=== PATIENT | male | born 1940 | race Caucasian/White ===

== ENCOUNTER 2025-03-12 06:07 | Inpatient (IN) ==
--- NOTE | 2025-03-01 13:34 | PAT Medication Instructions ---
Medication Instructions Date of Service March 01, 2025 Home Medications Medication Instructions Recorded lidocaine 5 % topical ointment 1 applic topical QID PRN pain #50 02/16/25 grams gabapentin 300 mg capsule 300 mg PO TID #90 caps 02/23/25 cholecalciferol (vitamin D3) 25 mcg (1,000 unit) capsule (Vitamin D3) 25 mcg PO QAM dutasteride 0.5 mg capsule (Avodart) 0.5 mg PO QAM esomeprazole magnesium 40 mg capsule,delayed release (Nexium) 40 mg PO QAM metformin 500 mg tablet 500 mg PO BID metoprolol succinate 25 mg tablet,extended release 24 hr 12.5 mg PO QAM mirabegron 50 mg tablet,extended release 24 hr (Myrbetriq) 50 mg PO QAM vvmocpes-cx-zbolz 300 mcg-K 60 mcg-lycop 600 mcg-lutein 300 mcg tablet (Centrum Silver Men) 1 tab PO QAM rosuvastatin 20 mg tablet 20 mg PO QAM tamsulosin 0.4 mg capsule 0.4 mg PO QAM aspirin 81 mg capsule 81 mg PO QAM acetaminophen 650 mg tablet,extended release (Tylenol 8 Hour) 650 mg PO BID PRN cetirizine 10 mg tablet 10 mg PO QAM vit C 250 mg-vit E 90 mg-zinc 40 mg-copper 1 of-vrmjst-bwflqf capsule ( PreserVision AREDS-2) 1 tab PO BID celecoxib 200 mg capsule 200 mg PO BID empagliflozin 25 mg tablet (Jardiance) 25 mg PO QAM lidocaine 5 % topical ointment 1 applic topical QID PRN gabapentin 300 mg capsule 300 mg PO TID STOP 3 days before surgery empagliflozin 25 mg tablet (Jardiance) 25 mg PO QAM ASK your surgeon for instructions celecoxib 200 mg capsule 200 mg PO BID ASK your prescriber and surgeon aspirin 81 mg capsule 81 mg PO QAM STOP taking 2 weeks before surgery (or as soon as possible if surgery is within 2 weeks) vit C 250 mg-vit E 90 mg-zinc 40 mg-copper 1 tp-padmgm-vxzcdi capsule (PreserVis ion AREDS-2) 1 tab PO BID STOP taking 24 hours before surgery lidocaine 5 % topical ointment 1 applic topical QID PRN DO NOT take the morning of surgery cholecalciferol (vitamin D3) 25 mcg (1,000 unit) capsule (Vitamin D3) 25 mcg PO QAM metformin 500 mg tablet 500 mg PO BID mirabegron 50 mg tablet,extended release 24 hr (Myrbetriq) 50 mg PO QAM ibqvnizw-dx-bigfl 300 mcg-K 60 mcg-lycop 600 mcg-lutein 300 mcg tablet (Centrum Silver Men) 1 tab PO QAM cetirizine 10 mg tablet 10 mg PO QAM Take morning of surgery With a small sip of water, OTHERWISE NOTHING TO EAT OR DRINK AFTER MIDNIGHT: dutasteride 0.5 mg capsule (Avodart) 0.5 mg PO QAM esomeprazole magnesium 40 mg capsule,delayed release (Nexium) 40 mg PO QAM metoprolol succinate 25 mg tablet,extended release 24 hr 12.5 mg PO QAM rosuvastatin 20 mg tablet 20 mg PO QAM tamsulosin 0.4 mg capsule 0.4 mg PO QAM acetaminophen 650 mg tablet,extended release (Tylenol 8 Hour) 650 mg PO BID PRN (if needed) gabapentin 300 mg capsule 300 mg PO TID Take evening before surgery metformin 500 mg tablet 500 mg PO BID acetaminophen 650 mg tablet,extended release (Tylenol 8 Hour) 650 mg PO BID PRN (if needed) gabapentin 300 mg capsule 300 mg PO TID Other Notes If you have any questions please call us at [phone] or [phone] or or [phone]
--- NOTE | 2025-03-04 08:29 | Anesthesiology Consultation ---
Date of Service March 04, 2025 Assessment & Plan (1) Encounter for pre-operative examination: - Check BSG DOS - Infectious disease screening: Per assessment on 03/04/25- No known recent infectious disease contacts or current infectious disease symptoms. - Cardiology visit (12/24/23): "Patient is doing well and has no complaints.. Will recommend an Echocardiogram and carotid arterial doppler.." - S/P cystoscopy, stent, laser 11/13/24: LMA#4, atraumatic, [facility] - Hematology note 03/11/25: "Pt is medically cleared for oblique lumbar interbody fusion @ L4-5, posterior fusion on 03/12/2025" - PCP note 03/03/25: "..Had an electrocardiogram which reveals a normal sinus rhythm with normal axis. Nonspecific ST changes with no acute change.. No serial change from the EKG taken 2023.. Based on Mushtaq's history, physical examination, and the ancillary testing.. He is medically clear for elective back surgery done under general anesthesia.. ASA category II anesthesia risk with a Mallampati I airway assessment.." PCP note indicates recommendation for patient to take Olmesartan morning of surgery > Patient was subsequently seen at PAT 03/04/25 and advised not to take Olmesartan morning of surgery given interaction with anesthesia/perioperatively- Patient voiced understanding. - Cardiology visit 12/29/24: "Patient is here to follow up.. doing well and has no complaints.. CAD.. HTN.. HLD.. Will continue current Rx and plan of care." > Stress test done 03/09/25 notes: LV perfusion defect that is small in size present in the apex that is reversible. There is normal wall motion in the defect area. The defect appears to be ischemia; patient also with abnormal 2022 stress test with medical management decision. 03/09/25 stress test was personally reviewed by mushroom press operator (Dr. Floyd Hernandez) who then provided 03/09/25 note indicating "moderate risk" for surgery. Decision again for medical management of stress test findings. Spoke with patient via phone 03/11/25 who confirmed that no cardiac intervention planned regarding stress test findings and recommendations to continue medical management. Reviewed with Dr. Casas; okay to proceed as scheduled with surgery. - Cardiology note 03/09/25: "Moderate risk" for surgery - *Hx of tracheostomy* (2018) r/t Jasen's angina > since removed; subsequent general anesthesia (LMA) at [facility]. Chart Review Chart Review: Acceptable Risk for Surgery (pending evaluation DOS) and Patient seen in Pre Admission Testing Teaching & Discussion Pre-Anesthesia Teaching/Discussion Notes: Instructed NPO after midnight before surgery,except medications with 15 cc of water. Medication instructions provided according to the PAT guidelines. History Surgery Operation Date: 03/12/25 07:30 Proposed Procedures p Oblique Lumbar Interbody Fusion L4-5, Posterior Fusion - Rodriguez Berrios MD Height/Weight Height: 6 ft Weight: 90.8 kg Allergies Allergy/AdvReac Type Severity Reaction Status Date / Time No Known Allergies Allergy Verified 03/01/25 11:21 Medications Home Medications Medication Instructions Recorded Confirmed Last Taken cholecalciferol (vitamin D3) 25 25 mcg PO QAM 01/03/23 03/01/25 11/12/24 08:00 mcg (1,000 unit) capsule (Vitamin D3) dutasteride 0.5 mg capsule 0.5 mg PO QAM 01/03/23 03/01/25 11/12/24 08:00 (Avodart) esomeprazole magnesium 40 mg 40 mg PO QAM 01/03/23 03/01/25 11/13/24 08:00 capsule,delayed release (Nexium) metformin 500 mg tablet 500 mg PO BID 01/03/23 03/01/25 11/12/24 20:30 metoprolol succinate 25 mg 12.5 mg PO QAM 01/03/23 03/01/25 11/13/24 08:00 tablet,extended release 24 hr mirabegron 50 mg tablet,extended 50 mg PO QAM 01/03/23 03/01/25 11/12/24 08:00 release 24 hr (Myrbetriq) tzgnpqwq-bb-izhxp 300 mcg-K 60 1 tab PO QAM 01/03/23 03/01/25 11/08/24 mcg-lycop 600 mcg-lutein 300 mcg tablet (Centrum Silver Men) rosuvastatin 20 mg tablet 20 mg PO QAM 01/03/23 03/01/25 11/13/24 08:00 tamsulosin 0.4 mg capsule 0.4 mg PO QAM 01/03/23 03/01/25 11/12/24 08:00 aspirin 81 mg capsule 81 mg PO QAM 10/29/23 03/01/25 11/08/24 acetaminophen 650 mg 650 mg PO BID PRN Pain 11/06/24 03/01/25 11/13/24 07:45 tablet,extended release (Tylenol 8 Hour) cetirizine 10 mg tablet 10 mg PO QAM 11/06/24 03/01/25 11/12/24 08:00 vit C 250 mg-vit E 90 mg-zinc 40 1 tab PO BID 11/06/24 03/01/25 11/08/24 mg-copper 1 jm-cpidht-sjbqly capsule (PreserVision AREDS-2) celecoxib 200 mg capsule 200 mg PO BID 02/02/25 03/01/25 Unknown empagliflozin 25 mg tablet 25 mg PO QAM 02/02/25 03/01/25 Unknown (Jardiance) lidocaine 5 % topical ointment 1 applic topical QID PRN pain #50 02/16/25 03/01/25 Unknown grams gabapentin 300 mg capsule 300 mg PO TID #90 caps 02/23/25 03/01/25 Unknown olmesartan 20 1 tab PO DAILY 03/04/25 03/04/25 Unknown mg-hydrochlorothiazide 12.5 mg tablet Past Medical History Medical History (Updated 03/11/25 @ 12:10 by Tavia Christensen) Atrial fibrillation Per records BPH (benign prostatic hyperplasia) CAD (coronary artery disease) 2020- KRISS to proximal PDA Follows with Dr. Hernandez-Rodger Carotid artery stenosis 06/2023: B/L ICA stenosis <50% Chronic anemia Chronic back pain CKD (chronic kidney disease), stage III Diabetes DVT (deep venous thrombosis) Remote hx several years ago of right internal jugular DVT secondary to central line while in ICU Anticoagulated for 2 years with repeat ultrasound negative for retained clot in jugular vein per records Facet arthropathy, lumbosacral GERD (gastroesophageal reflux disease) High cholesterol History of colon polyps History of COVID-19 ~2022- treated with Paxlovid History of non-ST elevation myocardial infarction (NSTEMI) 2020 (per records)- stent x1 Follows with Dr. Hernandez (Rodger, MAKAYLA) History of stomach ulcers s/p surgery Hx of bladder cancer (01/2023) Hx TURBT Hx of renal calculi Hypertension Kidney stones Ludwigs angina Remote hx 2018 per PCP records; had tracheostomy for approximately 3 weeks- since reversed and fully recovered Lumbar disc herniation with radiculopathy Lymphoma (01/2025) Follows with [facility]c Dx non-Hodgkin's lymphoma per 02/16/25 heme/onc visit Macular degeneration of right eye Receives injections Osteoarthritis B/L knees every 90 days Osteoarthritis of left hip Renal mass Renal mass/cyst per records Sleep apnea CPAP (compliant) Spinal stenosis Exercise / Class Metabolic Activity II 4-5 Yardwork/Stairs/Walk up hill (one FS: No CP, no SOB) Past Surgical History Surgical History Broken ankle Surgical repair History of cardiac cath (2020) Stent x1 History of cataract surgery (2021) R/L History of esophagogastroduodenoscopy (EGD) History of heart artery stent 2020 History of lithotripsy (2022) Cysto, left laser litho (2022) History of lumbar surgery (2014) L3-L4 ? [place] History of transurethral resection of bladder tumor (TURBT) (12/2022) Hx of colonoscopy with polypectomy Hx of tracheostomy S/P cystoscopy with ureteral stent placement (10/2024) LMA#4, atraumatic, [facility] Past Anesthesia History No Hx of Anesthesia Complications and No Family Hx of Anesthesia Complications History of PONV No Hx of PONV and No Hx of Motion Sickness Social History Smoking Status: Never smoker Do You Dip or Chew Tobacco: No Hx Alcohol Use: Yes alcohol intake frequency: holidays/special occasions only Hx Substance Use: No substance use type: does not use Review of Systems Patient denies chest pain, shortness of breath, dyspnea on exertion, fever, chills, cough, wheezing, palpitations. Physical Exam Vital Signs BP 121/67 P 81 TEMP 97.8 SP02 97%RA RESP 18 Physical Full cervical extension range of motion. Full TMJ range of motion. TMD 3 finger breaths Mallampati Score I Dentition: intact, + crowns Lungs: clear throughout to auscultation Cardiac: regular rate and rhythm, no murmurs noted Spine: normal Carotid arteries: negative bruit Extremities: no LE edema + trach scar Lab Results Anesthesia Preop Results Results Anesthesia Widget: WBC 10.21 K/ul (4.8-10.8) 03/04/25 Hgb 10.9 g/dL (14.0-18.0) L 03/04/25 Hct 34.5 % (42.0-52.0) L 03/04/25 Plt 349 K/uL (130-400) 03/04/25 Na 141 mmol/L (136-145) 02/16/25 K 4.1 mmol/L (3.5-5.1) 02/16/25 Cl 110 mmol/L (98-107) H 02/16/25 CO2 22 mmol/L (21-32) 02/16/25 BUN 32 mg/dl (6-23) H 02/16/25 Creat 1.41 mg/dl (0.6-1.4) H 02/16/25 Glucose Level 132 mg/dl (70-99(Fasting)) H 02/16/25 PT 11.4 Seconds (9.0-12.0) 03/04/25 PTT 29 Seconds (21-31) 03/04/25 INR 1.1 (0.9-1.1) 03/04/25 TSH 1.41 uIU/mL (0.30-4.50) 01/26/25 HA1c 6.6 % H 01/26/25 Blood Type O Positive 03/04/25 Antibody Screen NEGATIVE 03/04/25 Testing Laboratory Results Per 11/10/24 urology workload note, recent urine culture report rece ived/reviewed- positive findings, started on Augmentin x 10 days (report not available at time of current review). Electrocardiogram Date: 11/02/24 NSR at 80bpm. Date: 03/03/25 NSR. 87bpm. PRWP across precordium. NS ST change. No acute changes. No significant change from EKG comparison 2023. Chest X-Ray Date: 11/02/24 No acute abnormality. There are low lung volumes. Echocardiogram Date: 07/01/23 EF 55-60%. Moderate hypertrophy. Mild MR/TR. Mildly dilated ascending aorta. Mildly dilated aortic root. Grade I DD. Other Testing Stress Test Date: 12/25/22 Type: nuclear Negative Lexiscan stress test Abnormal myocardial perfusion examination. Study suggestive of prior nontransmural myocardial infarction involving the e ntire inferior segment of the left ventricle and adjacent apical, adjacent basal and mid lateral segments with mild nba-infarct ischemia. Normal LV systolic function, no regional wall motion abnormalities 12/25/2022 stress test reviewed at 01/08/23 cardio visit. "seen to establish in office for 1 month follow-up to discuss stress test. Patient denies any chest pressure, shortness of breath, palpitations, lightheadedness or dizziness, significant swelling. CADcurrently asymptomatic. Prior coronary stents. Recent stress test reviewed and discussed, low risk results. Discussed importance of daily exercise and continued medical management for now." Carotid duplex Date: 07/01/23 Mild B/L ICA stenosis <50%. Antegrade flow both vertebral arteries. Stress test Date: 03/09/25 ECG was negative for ischemia. LV perfusion defect that is small in size present int he apex that is reversible. There is normal wall motion in the defect area. The defect appears to be ischemia. Cardiac Catheterization Date: 10/24/20 Mid LM to distal LM lesion 25% stenosis Proximal LAD to mid LAD 50% stenosed Mid LAD to distal LAD 90% stenosis Distal LAD lesion 95% stenosed Proximal circumflex to mid circumflex lesion 100% stenosis (Collaterals from RPL system) RPDA lesion 99% stenosis (No collaterals to RCA) Proximal RCA to mid RCA lesion 20% stenosis RPDA reduced to 0% stenosis Ostial LAD to proximal LAD lesion is 30% stenosis LV systolic function is normal Hunter that right coronary artery is acute lesion, well-formed collaterals to circumflex obtuse marginal. Decided to proceed with intervention on RPDA KRISS placed to proximal right posterior descending artery
[2025-03-12] MEDS: ACETAMINOPHEN 500 MG TAB PO SCH (06:53)
[2025-03-12] MEDS: LR 15ML/HR IV SCH (06:53)
[2025-03-12] MEDS: LR 60ML/HR IV SCH (06:53)
[2025-03-12] MEDS ORDERED: MIDAZOLAM HCL 1 MG/ML 2ML VIAL ONE (07:04)
[2025-03-12] MEDS ORDERED: DEXAMETHASONE SOD INJ 4 MG/ML VIAL ONE (07:04)
[2025-03-12] MEDS ORDERED: ONDANSETRON INJ 2 MG/ML 2 ML VIAL ONE ×2 (07:04→09:30)
[2025-03-12] MEDS ORDERED: PROPOFOL IV EMULSION 10 MG/ML 20 ML VIAL IV ONE (07:04)
[2025-03-12] MEDS ORDERED: LIDOCAINE 2% 2 ML VIAL/AMP(20MG/ML) INFIL ONE (07:04)
[2025-03-12] MEDS ORDERED: HYDROmorphone INJ 2 MG/ML SYR/VIAL ONE (07:06)
[2025-03-12] MEDS ORDERED: SUCCINYLCHOLINE CHLORIDE 20 MG/ML 10 ML VIAL IV ONE (07:06)
[2025-03-12] MEDS ORDERED: ROCURONIUM BROMIDE 10 MG/ML 5 ML VIAL IV ONE (07:06)
[2025-03-12] MEDS ORDERED: REMIFENTANIL HCL 1 MG VIAL IV ONE ×2 (07:22→10:15)
[2025-03-12] MEDS ORDERED: PROPOFOL IV EMULSION 10 MG/ML 100 ML VIAL IV ONE (07:23)
--- NOTE | 2025-03-12 07:23 | History & Physical Bridge Note ---
Date of Service March 12, 2025 History & Physical Bridge Note I have examined the patient, reviewed the History & Physical and in the interval since the performance of the History & Physical I have noted the following changes of clinical significance: no changes noted plan for OLIF L4-5
[2025-03-12] MEDS ORDERED: ONDANSETRON INJ 2 MG/ML 2 ML VIAL IV PRN ×2 (07:29→14:44)
[2025-03-12] MEDS ORDERED: ATROPINE SULFATE 0.1 MG/ML 10ML SYR IV PRN (07:29)
[2025-03-12] MEDS ORDERED: PHENYLEPHRINE HCL 10 MG/ML VIAL ONE (08:34)
[2025-03-12] MEDS: VANCOMYCIN HCL 1000MG/20ML VIAL ONE (08:40)
[2025-03-12] MEDS ORDERED: ceFAZolin 330 MG/ML 1 GM VIAL ONE ×2 (10:12)
[2025-03-12] MEDS: FLOSEAL HEMOSTATIC MATRIX 10ML TOP ONE (11:56)
--- NOTE | 2025-03-12 12:06 | Operative Report ---
Post Operative Report Procedure Date: March 12, 2025 Pre & Post Diagnosis: Lumbar degenerative scoliosis Lumbar foraminal stenosis Lumbar spondylosis Lumbar radiculopathy Time Out: I identified the patient and participated in the time-out. Procedure: Anterior lumbar interbody fusion via oblique approach L4-5 Insertion of interbody spacer for fusion L4-5 Posterior nonsegmental instrumentation L4-5 Posterior lateral fusion L4-[address] guided navigation for spinal instrumentation Use of allograft for spinal fusion Surgeon: Rodriguez Berrios MD Arc Cutter: MD Brandon Calzada PA-C Estimated Blood Loss: 100 ml Specimens: None Instrumentation: Medtronic percutaneous pedicle screws Camber Spira OLIF interbody cage Description of Procedure: Patient was brought to the operating room where general anesthesia was induced. He was placed in the right lateral decubitus position, axillary roll was used to pad the down side axilla. He was positioned appropriately in the lateral position and secured the extensive taping to the table. He was prepped and draped in the usual sterile fashion. Incision was planned using preoperative fluoroscopy. Verbal timeout performed identifying the patient by name date of and verifying the correct procedure. Incision was made in the left lower quadrant just anterior to the iliac crest. External oblique fascia of was incised, blunt dissection was carried out through the external and internal and transverse oblique layers. Retroperitoneal space was entered and the retroperitoneal fat was mobilized. I then identified the L4-5 disc space anterior to the psoas muscle. Preoperative fluoroscopy was used to verify the correct level. Fibers of the psoas muscle were released and the psoas was mobilized posteriorly and retracted by my visual merchandising assistant. There is a large anterior and lateral osteophyte overlying the L4-5 disc space which was removed with a combination of rongeurs and Kerrison punches. The disc space was identified and a complete discectomy was performed at the L4-5 level using a combination of Fregoso elevators, curettes and pituitary rongeur. The endplates were identified a rasp was used to obtain bleeding bone at the L4 and L5 endplate. Using fluoroscopy trial implants were placed into the disc space and the correct size was identified. A 13 mm hide a large footprint OLIF cage from [facility] spine was then packed with allograft material and placed into the L4-5 disc space under fluoroscopy. There was excellent correction of the coronal deformity from his asymmetric disc collapse and the foramen were verified to be patent on lateral x-ray. Once the final position of the implant was confirmed on AP and lateral x-ray all retractors were removed, they dissection site was inspected and there was no visible bleeding. Floseal was applied over the disc space. The oblique musculature was then closed in layers. The skin was closed with Vicryl suture and Monocryl followed by Dermabond. The patient was then placed in the prone position and redraped in a sterile fashion. Navigation pin was placed into the PSIS. The EmSense O-arm was brought in for an intraoperative CT scan and imaging was uploaded to the [employer] navigation unit for instrumentation. I marked the incision and incised the skin with a scalpel, I dissected down through the lumbodorsal fascia to identify the facet joint. A navigated bur was then used to decorticate the posterior facet joint at L4-5 bilaterally. I used a mixture of demineralized bone matrix as well as theBenchtronic master graft bone graft division merchandise manager and packed this into the L4-5 facet joints bilaterally to encourage posterior fusion at this level. Using a navigated awl I created pedicle tracks at L4 and L5 bilaterally. 6.5 mm diameter screws were placed into the pedicle of L4 and L5 bilaterally, rods were then placed into the tulip heads and setscrews were applied. Post instrumentation CT scan was again performed with the EmSense O-arm. Images were uploaded to the in room viewer and I personally verified good position of all of the pedicle screw instrumentation and rods. Setscrews were final tightened and the percutaneous tabs were removed. Posterior percutaneous incision were closed in layers using suture and tsering. Neuromonitoring was utilized throughout both portions of the case, there were no changes in motor evoked potentials, no sustained EMG firing. Pedicle screws were stimulated with no response up to 20 mA at all screws. Patient was awakened from anesthesia and taken to PACU in stable condition.
[2025-03-12] MEDS: BUPIVACAINE 0.5 % 5 MG/1 ML MPF 30ML VIAL ONE (12:09)
[2025-03-12] MEDS: HYDROmorphone INJ 1 MG/ML SYRINGE IV PRN (13:05)
[2025-03-12] MEDS: HYDROmorphone INJ 0.5 MG/0.5 ML SYR IV SCH (13:52)
--- NOTE | 2025-03-12 13:55 | Anesthesiology Progress Note ---
Date of Service March 12, 2025 Anesthesia Post Procedure Vital Signs Vital Signs: Temp Pulse Resp BP Pulse Ox O2 Del Method O2 Flow Rate 03/12/25 13:35 80 12 118/75 96 Oxymask 3 03/12/25 13:25 72 14 128/73 94 Oxymask 4 03/12/25 13:15 70 12 124/71 97 Oxymask 4 03/12/25 13:05 73 12 132/82 95 Oxymask 4 03/12/25 12:55 75 12 123/77 96 Oxymask 4 03/12/25 12:45 76 14 123/76 98 Oxymask 8 03/12/25 12:35 36 C L 76 12 120/63 98 Oxymask 8 03/12/25 06:38 36.5 C 76 20 137/79 96 Room Air Pain Intensity Back: Pain Intensity: 6 Transfer of Care Handoff Completed per policy Notes Mental Status: alert / awake / arousable Patient Amnestic to Procedure: Yes Nausea / Vomiting: adequately controlled Pain: improving with treatment Airway Patency, RR, SpO2: stable & adequate BP & HR: stable & adequate Hydration State: stable & adequate Anesthetic Complications: no major complications apparent
[2025-03-12] MEDS ORDERED: SOD PHOSPHATE/SOD BIPHOSPHATE ENEMA 132 ML BTL PR PRN (14:44)
[2025-03-12] MEDS ORDERED: MAGNESIUM HYDROXIDE SUSP 30 ML UDC PO PRN (14:44)
[2025-03-12] MEDS ORDERED: DO NOT ADMINISTER PNEUMOCOCCAL VACCINE PRN (14:44)
[2025-03-12] MEDS ORDERED: HYDROmorphone INJ 1 MG/ML SYRINGE IV PRN (14:44)
[2025-03-12] MEDS ORDERED: ACETAMINOPHEN 1,000 MG/100 ML VIAL IV PRN (14:44)
[2025-03-12] MEDS ORDERED: PROMETHAZINE 12.5 MG/50.5 ML BAG IV PRN (14:44)
[2025-03-12] MEDS ORDERED: ONDANSETRON 4 MG OD TAB PO PRN (14:44)
[2025-03-12] MEDS ORDERED: DO NOT ADMINISTER FLU VACCINE PRN (14:44)
[2025-03-12] MEDS ORDERED: HYDROmorphone INJ 0.5 MG/0.5 ML SYR IV PRN (14:44)
[2025-03-12] MEDS ORDERED: PHARMACY GLYCEMIC MGMT CONSULT PRN (14:44)
[2025-03-12] MEDS ORDERED: NALOXONE HCL 0.4 MG/1 ML VIAL/CARP IV PRN (14:44)
[2025-03-12] MEDS ORDERED: ALUMINUM/MAGNESIUM SUSP 30 ML UDC PO PRN (14:44)
[2025-03-12] MEDS ORDERED: diphenhydrAMINE Capsule 25 MG CAP PO PRN (14:44)
[2025-03-12] MEDS ORDERED: FAMOTIDINE 20 MG TAB PO PRN (14:44)
[2025-03-12] MEDS: HYDROmorphone INJ 0.5 MG/0.5 ML SYR ONE (14:56)
--- NOTE | 2025-03-12 14:58 | Hospitalist Consultation ---
Date of Consultation March 12, 2025 Assessment & Plan (1) Spinal stenosis of lumbar region with radiculopathy: (2) S/P lumbar spinal fusion: (3) Non Hodgkin's lymphoma: Plan This patient is an 84-year-old male who presented on 03/12 for an oblique lumbar interbody fusion L4-L5 with Dr. Berrios. We were consulted postoperatively for medical management. #S/p lumbar spine surgery Perioperative antibiotics, pain control, fluids, and DVT PPx per the primary team Doing well postoperatively Agree with a.m. CBC, BMP; we will follow #T2DM Last A1c at 6.6% on 01/26/2025 Hold metformin, Jardiance SSI; with target BSG range 110-140mg/dL, CF 25, carb ratio 9 T2DM diet BSG ACHS Adjust regimen as needed Pharmacy glycemic consult appreciated #CAD s/p KRISS H/o NSTEMI 10/24/2020 with proximal posterior descending KRISS placed Okay to restart aspirin on 03/13 at discretion of primary team #HTN Continue metoprolol Hold olmesartanHCTZ #HLD Continue rosuvastatin #GERD Continue PPI # Renal mass secondary to non-Hodgkin's lymphoma H/o bladder cancer; urothelial carcinoma s/p transurethral resection in 2022; follows with Dr. Jackson (Urology) Recent diagnosis of non-Hodgkin's lymphoma on 02/16/2025 Has upcoming appointment with oncology (Dr. Da Silva) on 03/23; has not yet started treatments #NICKOLAS CPAP HS May use own CPAP brought in from home Thank you for allowing us to participate in the care of his patient; please reach out with any questions or concerns. We will continue to follow. History of Present Illness Reason for Consultation: Postop medical management (DM, lymphoma, HTN) Requesting Physician: Rodriguez Berrios MD Attending Physician: Rodriguez Berrios MD History of Present Illness Mr. Velasquez is an 84-year-old male with PMH of bladder cancer, non-Hodgkin's lymphoma (recently diagnosed 02/16/2025), lumbosacral spondylosis, T2DM, HLD, and HTN. He presented on 03/12 for an L4-5 lumbar [address] fusion with Dr[address] Berrios. Per review of operative report, EBL was listed as 100 cc, and general anesthesia was used. Vitals have appeared stable postoperatively, and patient is slowly being weaned off of supplemental oxygen (currently SpO2 is 98% on 3L NC). Patient is assessed with family members at bedside following the operation. He is in good spirits. He reports minimal pain in his lower back, but describes it as an achy pain. No pain shooting down the legs. No numbness or tingling in the groin region or legs. He has not yet been out of bed since the procedure. He is doing well with eating and drinking, and just had some ice cream. While he does not use supplemental oxygen at home, he does use a CPAP at night (which he brought in from home). In regard to medications, he reports he takes aspirin for history of the heart stent. He did not take aspirin this morning, as instructed. Patient denies any shortness of breath, chest pain, nausea, vomiting, or sore throat/difficulty swallowing following the procedure. No new complaints at this time. ROS: Patient endorses aching/soreness in the lower back Patient denies chest pain, chest palpitations, SOB, pleuritic CP, cough, sore throat, difficulty swallowing, abdominal pain, N/V/D, changes in urinary/bowel habits, burning with urination, blood in the urine or stool, saddle anesthesia, or numbness or tingling going down the legs. Allergies Allergy/AdvReac Type Severity Reaction Status Date / Time No Known Allergies Allergy Verified 03/12/25 06:27 Home Medications Medication Instructions Recorded Confirmed Type cholecalciferol (vitamin D3) 25 25 mcg PO QAM 01/03/23 03/12/25 History mcg (1,000 unit) capsule (Vitamin D3) dutasteride 0.5 mg capsule 0.5 mg PO QAM 01/03/23 03/12/25 History (Avodart) esomeprazole magnesium 40 mg 40 mg PO QAM 01/03/23 03/12/25 History capsule,delayed release (Nexium) metformin 500 mg tablet 500 mg PO BID 01/03/23 03/12/25 History metoprolol succinate 25 mg 12.5 mg PO QAM 01/03/23 03/12/25 History tablet,extended release 24 hr (Toprol XL) mirabegron 50 mg tablet,extended 50 mg PO QAM 01/03/23 03/12/25 History release 24 hr (Myrbetriq) swiyipmh-ry-kmxiz 300 mcg-K 60 1 tab PO QAM 01/03/23 03/12/25 History mcg-lycop 600 mcg-lutein 300 mcg tablet (Centrum Silver Men) rosuvastatin 20 mg tablet (Crestor) 20 mg PO QAM 01/03/23 03/12/25 History tamsulosin 0.4 mg capsule 0.4 mg PO QAM 01/03/23 03/12/25 History aspirin 81 mg capsule 81 mg PO QAM 10/29/23 03/12/25 History acetaminophen 650 mg 650 mg PO BID PRN Pain 11/06/24 03/12/25 History tablet,extended release (Tylenol 8 Hour) cetirizine 10 mg tablet 10 mg PO QAM 11/06/24 03/12/25 History vit C 250 mg-vit E 90 mg-zinc 40 1 tab PO BID 11/06/24 03/12/25 History mg-copper 1 tx-rwmnpf-idenbp capsule (PreserVision AREDS-2) celecoxib 200 mg capsule 200 mg PO BID 02/02/25 03/12/25 History empagliflozin 25 mg tablet 25 mg PO QAM 02/02/25 03/12/25 History (Jardiance) lidocaine 5 % topical ointment 1 applic topical QID PRN pain #50 02/16/25 03/12/25 Rx grams gabapentin 300 mg capsule 300 mg PO TID #90 caps 02/23/25 03/12/25 Rx olmesartan 20 1 tab PO DAILY 03/04/25 03/12/25 History mg-hydrochlorothiazide 12.5 mg tablet (Benicar HCT) Patient History Medical History (Updated 03/12/25 @ 15:58 by Ricardo Riley PACamiloC) Carotid artery stenosis 06/2023: B/L ICA stenosis <50% Atrial fibrillation Per records Chronic anemia Facet arthropathy, lumbosacral 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 Hernandez ([place], [place]) Macular degeneration of right eye Receives injections Spinal stenosis History of colon polyps History of COVID-19 ~2022- treated with Paxlovid Osteoarthritis B/L knees every 90 days Renal mass Renal mass/cyst per records Kidney stones Hx of renal calculi Hx of bladder cancer (01/2023) Hx TURBT DVT (deep venous thrombosis) Remote hx several years ago of right internal jugular DVT secondary to central line while in ICU Anticoagulated for 2 years with repeat ultrasound negative for retained clot in jugular vein per records Ludwigs angina Remote hx 2018 per PCP records; had tracheostomy for approximately 3 weeks- since reversed and fully recovered CKD (chronic kidney disease), stage III Chronic back pain History of stomach ulcers s/p surgery Sleep apnea CPAP (compliant) BPH (benign prostatic hyperplasia) GERD (gastroesophageal reflux disease) CAD (coronary artery disease) 2020- KRISS to proximal PDA Follows with Dr. Galvan High cholesterol Hypertension Diabetes Surgical History (Updated 03/12/25 @ 15:58 by Ricardo Riley PA-C) Hx of tracheostomy S/P cystoscopy with ureteral stent placement (10/2024) LMA#4, atraumatic, [facility] Hx of colonoscopy with polypectomy Broken ankle Surgical repair History of transurethral resection of bladder tumor (TURBT) (12/2022) History of lithotripsy (2022) Cysto, left laser litho (2022) History of cataract surgery (2021) R/L History of esophagogastroduodenoscopy (EGD) History of heart artery stent 2020 History of cardiac cath (2020) Stent x1 History of lumbar surgery (2014) L3-L4 ? 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 Beliefs That Will Affect Care: None Current Living Situation: Spouse Other Information That Helps Us Care for You: No Feels Safe at Home: Yes Safety Concerns: Feels Safe At This Time Assistive Devices: Walker Review of Systems Review of Systems: See HPI above Physical Exam Physical Exam: General: no acute distress; pleasant affect; family at bedside; non-toxic appearing; cooperative; SpO2 98% on 3L NC HEENT: normocephalic, atraumatic; PERRLA; vision and hearing intact Neck: supple; trachea midline Skin: warm, dry without signs of tenting; no cyanosis; no rashes, bruising, lesions, or erythema noted CV: chest wall NTP; RRR; S1/S2 normal; no murmurs/rubs/gallops; pulses intact and symmetric at radial, DP, and PT Lungs: no acute respiratory distress; symmetrical chest wall expansion; clear breath sounds across all lung parham w/o adventitious sounds; no wheezing ABD: Soft, NTP; BS present; no rebound/guarding; no distention Back: Upper spine NTP; lower spine mildly TTP around the surgical site dressing; no signs of erythema, drainage, or infection around the surgical site MSK: no tics or fasciculations; no edema noted in the LEs b/l, nonerythematous; 5/5 plantar/dorsiflexion in the ankles bilaterally; 3/5 strength flexing at the hip bilaterally while laying supine in bed Neuro: A&Ox3; normal mood and affect; fluent speech; patient report sensation is intact and symmetric in the lower extremities bilaterally assessed via light touch Results & Data Results & Data Vital Signs (Past 12 Hours) Vital Signs Temp Pulse Pulse Resp BP Pulse Ox O2 Del Method 03/12/25 14:35 36.4 C L 76 16 124/78 96 Nasal Cannula 03/12/25 14:05 36.4 C L 80 14 123/75 97 Nasal Cannula 03/12/25 13:55 79 16 131/76 96 Nasal Cannula 03/12/25 13:45 71 12 104/67 96 Nasal Cannula 03/12/25 13:35 80 12 118/75 96 Oxymask 03/12/25 13:25 72 14 128/73 94 Oxymask 03/12/25 13:15 70 12 124/71 97 Oxymask 03/12/25 13:05 73 12 132/82 95 Oxymask 03/12/25 12:55 75 12 123/77 96 Oxymask 03/12/25 12:45 76 14 123/76 98 Oxymask 03/12/25 12:35 36 C L 76 12 120/63 98 Oxymask 03/12/25 06:38 36.5 C 76 20 137/79 96 Room Air O2 Flow Rate 03/12/25 14:35 3 03/12/25 14:05 3 03/12/25 13:55 3 03/12/25 13:45 3 03/12/25 13:35 3 03/12/25 13:25 4 03/12/25 13:15 4 03/12/25 13:05 4 03/12/25 12:55 4 03/12/25 12:45 8 03/12/25 12:35 8 03/12/25 06:38 PG Care Time/CCT Total # of Minutes Spent Total Time Spent with Patient: Total time spent is greater than 50% in coordination of care (as documented) at patient's floor/unit and/or counseling patient: Coding [place] [address] IN/OBS CONSULT LVL 3,45M Patient Type Established History Comprehensive Exam Comprehensive Medical Decision Making Moderate Complexity Diagnoses Spinal stenosis of lumbar region with radiculopathy M48.061; M54.16 S/P lumbar spinal fusion Z98.1 Non Hodgkin's lymphoma C85.90
--- NOTE | 2025-03-12 15:00 | Fluoroscopy Report ---
FL lumbar spine 2-3V CLINICAL HISTORY: OBLIQUE LUMBAR INTERBODY FUSION L4-L5 COMPARISON STUDY: PET/CT March 10, 2025. Fluoroscopy time: 42 seconds. Number of fluoroscopic images: 2. Ka,r: 30.55 mGy. FINDINGS: Fluoroscopy was provided during L4-L5 oblique interbody fusion. Surgical retractors are not ed. IMPRESSION: Fluoroscopy provided during L4-L5 oblique interbody fusion. ACT 112: Negative or not required by law. Electronically signed by: Chaz Martinez M.D. 03/12/2025 2:59 PM
[2025-03-12] MEDS: LACTATED RINGER'S 1,000 ML IV SCH (15:02)
[2025-03-12] MEDS ORDERED: GLUCOSE 10 TAB/TUBE PO PRN (15:30)
[2025-03-12] MEDS ORDERED: GLUCAGON FOR INJ 1 MG VIAL SQ PRN (15:30)
[2025-03-12] MEDS ORDERED: GLUCOSE 40% GEL 15 GM TUBE PO PRN (15:30)
[2025-03-12] MEDS ORDERED: DEXTROSE 50% 50 ML SYRINGE IV PRN (15:30)
[2025-03-12] MEDS: KETOROLAC TROMETHAMINE 15 MG/ML VIAL IV SCH (16:10)
[2025-03-12] MEDS: GABAPENTIN 300 MG CAP PO SCH (16:11)
[2025-03-12 17:00] LABS: Creatinine Clr Calc Pharmacy 49.5 ml/min
[2025-03-12] MEDS: INSULIN ASPART PER UNIT CHARGE SC SCH (17:31)
[2025-03-12] MEDS: ACETAMINOPHEN 500 MG TAB PO PRN (17:32)
[2025-03-12] MEDS: DOCUSATE SODIUM/SENNA 50/8.6MG TAB PO SCH (20:25)
[2025-03-13] MEDS: POLYETHYLENE (MIRALAX) 17 GM PACK PO SCH (06:09)
[2025-03-13 06:14] LABS: Hematocrit (blood only) 30.0 % (42.0-52.0); Hemoglobin 9.2 g/dL (14.0-18.0); Immature Granulocytes # (auto) 0.04 K/uL (0.01-0.20); Immature Granulocytes % (auto) 0.3 %; Mean Corpuscular Hemoglobin 24.5 pg (25.0-34.0); Mean Corpuscular Volume 79.8 fL (80.0-100.0); Platelet Count 298 K/uL (130-400); RDW Standard Deviation 54.4 fL (36.4-46.3); Red Blood Count 3.76 M/uL (4.70-6.10); White Blood Count 12.43 K/ul (4.8-10.8)
[2025-03-13 06:32] LABS: Anion Gap 7.0 (3-11); Blood Urea Nitrogen 33.0 mg/dl (6-23); Calcium 9.0 mg/dl (8.6-10.3); Carbon Dioxide 23.0 mmol/L (21-32); Chloride 109.0 mmol/L (98-107); Creatinine Clr Calc Pharmacy 41.5 ml/min; Glucose 123.0 mg/dl (70-99(Fasting)); Potassium 4.1 mmol/L (3.5-5.1); Sodium 139.0 mmol/L (136-145)
[2025-03-13] MEDS: CEROVITE ADV FORMULA TAB PO SCH (08:21)
[2025-03-13] MEDS: VIBEGRON 75 MG TAB PO SCH (08:21)
[2025-03-13] MEDS: ASPIRIN 81 MG ECTAB PO SCH (08:21)
[2025-03-13] MEDS: CHOLECALCIFEROL 25 MCG (1000 UNITS) TAB PO SCH (08:22)
[2025-03-13] MEDS: TAMSULOSIN HCL 0.4 MG CAP PO SCH (08:22)
[2025-03-13] MEDS: CETIRIZINE HCL 10 MG TABLET PO SCH (08:22)
[2025-03-13] MEDS: ROSUVASTATIN CALCIUM 20 MG TAB PO SCH (08:22)
[2025-03-13] MEDS: METOPROLOL SUCC 25MG EXT REL TAB PO SCH (08:22)
[2025-03-13] MEDS: FINASTERIDE 5 MG TAB PO SCH (08:23)
[2025-03-13] MEDS: LOSARTAN/HCTZ 50/12.5MG TAB PO SCH (08:23)
[2025-03-13] MEDS: ENOXAPARIN INJ 40 MG/0.4 ML SYR SQ SCH (08:23)
--- NOTE | 2025-03-13 08:49 | Hospitalist Progress Note ---
Date of Service March 13, 2025 Assessment & Plan (1) Spinal stenosis of lumbar region with radiculopathy: (2) S/P lumbar spinal fusion: (3) Non Hodgkin's lymphoma: Plan This patient is an 84-year-old male who presented on 03/12 for an oblique lumbar interbody fusion L4-L5 with Dr. Berrios. We were consulted postoperatively for medical management. #S/p lumbar spine surgery Perioperative antibiotics, pain control, fluids, and DVT PPx per the primary team Doing well postoperatively Lumbar spine x-ray the morning of 03/13 revealed new L4-5 fusion and unchanged compression fractures #Acute blood loss anemia Hgb 9.2 on POD #1 Expected drop in the setting of procedure Will continue to monitor, trend labs #Leukocytosis Mild; WBC count elevated 12.43 Clinically, patient denies infectious symptoms Suspect stress demargination in the setting of surgery Trend labs #T2DM Last A1c at 6.6% on 01/26/2025 Hold metformin, Jardiance SSI; with target BSG range 110-140mg/dL, CF 25, carb ratio 9 T2DM diet BSG ACHS Adjust regimen as needed Pharmacy glycemic consult appreciated #CAD s/p KRISS H/o NSTEMI 10/24/2020 with proximal posterior descending KRISS placed Continue aspirin #HTN Continue metoprolol Hold olmesartanHCTZ #HLD Continue rosuvastatin #GERD Continue PPI # Renal mass secondary to non-Hodgkin's lymphoma H/o bladder cancer; urothelial carcinoma s/p transurethral resection in 2022; follows with Dr. Jackson (Urology) Recent diagnosis of non-Hodgkin's lymphoma on 02/16/2025 Has upcoming appointment with oncology (Dr. Da Silva) on 03/23; has not yet started treatments #NICKOLAS CPAP HS May use own CPAP brought in from home Thank you for allowing us to participate in the care of his patient; please reach out with any questions or concerns. We will continue to follow. Admission and Anticipated Discharge Date Admission Date: March 12, 2025 Subjective Mr. Velasquez is in good spirits this morning. He slept well, and ate all of his breakfast without difficulty (scrambled eggs, toast, etc.). He rates the pain in his lower back as a 5 out of 10 at present. He describes as a "soreness" but denies any radiation down the legs with standing. Patient has been out of bed a couple times today, once when going for the x-ray, and again when standing on the side of the bed with nursing staff. He admits to feeling "wobbly" on his feet. He has no other complaints at this time. No saddle anesthesia. No numbness tingling going down the legs. No changes in urinary/bowel habits. ROS: Patient endorses lower back pain/soreness. Patient denies chest pain, chest palpitations, SOB, pleuritic CP, cough, sore throat, difficulty swallowing, abdominal pain, N/V/D, changes in urinary/bowel habits, burning with urination, blood in the urine or stool, saddle anesthesia, or numbness or tingling going down the legs. Review of Systems Review of Systems: See HPI above Physical Exam Physical Exam: General: no acute distress; pleasant affect; non-toxic appearing; cooperative; SpO2 95% on room air HEENT: normocephalic, atraumatic; PERRLA; vision and hearing intact Neck: supple; trachea midline Skin: warm, dry without signs of tenting; no cyanosis; no rashes, bruising, lesions, or erythema noted CV: chest wall NTP; RRR; S1/S2 normal; no murmurs/rubs/gallops; pulses intact and symmetric at radial, DP, and PT Lungs: no acute respiratory distress; symmetrical chest wall expansion; clear breath sounds across all lung parham w/o adventitious sounds; no wheezing ABD: Soft, NTP; BS present; no rebound/guarding; no distention Right knee: Mild joint effusion appreciated proximal to the right knee, which patient reports is chronic; no redness, swelling, or TTP; not warm to touch MSK: no tics or fasciculations; no edema noted in the LEs b/l, nonerythematous; 5/5 plantar/dorsiflexion in the ankles bilaterally; 3/5 strength when lifting in the LLE compared to 4/5 strength in the RLE Neuro: A&Ox3; normal mood and affect; fluent speech; patient report sensation is intact and symmetric in the lower extremities bilaterally assessed via light touch Results & Data Results & Data Vital Signs (Past 12 Hours) Vital Signs Temp Pulse Resp BP Pulse Ox O2 Del Method 03/13/25 07:27 36.8 C 88 18 105/62 95 Room Air 03/13/25 03:00 36.5 C 77 14 128/76 95 Room Air 03/12/25 23:58 36.7 C 84 18 108/65 94 CPAP PG Care Time/CCT Total # of Minutes Spent Total Time Spent with Patient: Total time spent is greater than 50% in coordination of care (as documented) at patient's floor/unit and/or counseling patient: C[place] [address] SUB INP/OBS CARE 04/18MIN Patient Type Established History Detailed Exam Detailed Medical Decision Making Low Complexity Diagnoses Spinal stenosis of lumbar region with radiculopathy M48.061; M54.16 S/P lumbar spinal fusion Z98.1 Non Hodgkin's lymphoma C85.90
[2025-03-13] MEDS ORDERED: EMPAGLIFLOZIN 25 MG TAB PO SCH (09:00)
--- NOTE | 2025-03-13 09:13 | XRay Report ---
Technique: 2 views of the lumbar spine are submitted for review Comparison is made to the prior examination dated 02/02/2025 Findings: There is scoliosis. There is a new anterior and posterior fusion of L4 and L5 with posterior fixation rods and bilateral pedicle screws and prosthetic disc placement. There is disc space narrowing and degenerative spur formation throughout the lumbar spine. There is an unchanged L4 compression fracture. There is an apparent mild L1 compression fracture. Vascular calcifications are present Impression: 1. New L4-5 fusion 2. Multilevel degenerative disc disease 3. Scoliosis 4. Unchanged old L1 and L4 compression fractures Electronically signed by Mario Ordoñez 03-13-2025 09:13 AM
--- NOTE | 2025-03-13 09:17 | Orthopedic Progress Note ---
Date of Service March 13, 2025 Assessment & Plan (1) Acute on chronic anemia: (2) Spinal stenosis of lumbar region with radiculopathy: (3) Lumbosacral spondylosis: Plan WBAT, AAT Mobilize with PT, eval for pain from left hip OA diet as tolerated Lovenox, SCDs monitor H&H, minimal blood loss, chronic anemia likely due to lymphoma, no need for transfusion as of now xrays Subjective s/p OLIF, RONN overnight, pain controlled, pre op leg pain resolved. Review of Systems All systems reviewed & are unremarkable except as noted in HPI & below. Physical Exam 3/5 left hip flexion, severe OA of left hip also contributory SILT L2-S1 Results & Data Results & Data Laboratory Results . Diagnostic Findings . PG Care Time/CCT Total # of Minutes Spent Total Time Spent with Patient: Total time spent is greater than 50% in coordination of care (as documented) at patient's floor/unit and/or counseling patient: Coding Level of Care Code 18691 Post Operative Follow-Up Diagnoses Acute on chronic anemia D64.9 Spinal stenosis of lumbar region with radiculopathy M48.061; M54.16 Osteoarthritis of spine with radiculopathy, lumbosacral region M47.27 Spinal osteoarthritis complication: with radiculopathy (3) Lumbosacral spondylosis Spinal osteoarthritis complication: with radiculopathy Qualified Code(s): M47.27 - Other spondylosis with radiculopathy, lumbosacral region
[2025-03-13] MEDS: CARBOHYDRATES FOR HYPOGLYCEMIA PO PRN (12:00)
[2025-03-14 07:21] LABS: Hematocrit (blood only) 31.2 % (42.0-52.0); Hemoglobin 9.8 g/dL (14.0-18.0); Immature Granulocytes # (auto) 0.06 K/uL (0.01-0.20); Immature Granulocytes % (auto) 0.5 %; Mean Corpuscular Hemoglobin 25.3 pg (25.0-34.0); Mean Corpuscular Volume 80.6 fL (80.0-100.0); Platelet Count 304 K/uL (130-400); RDW Standard Deviation 56.8 fL (36.4-46.3); Red Blood Count 3.87 M/uL (4.70-6.10); White Blood Count 11.94 K/ul (4.8-10.8)
[2025-03-14 07:37] LABS: Anion Gap 6.0 (3-11); Blood Urea Nitrogen 30.0 mg/dl (6-23); Calcium 9.3 mg/dl (8.6-10.3); Carbon Dioxide 26.0 mmol/L (21-32); Chloride 106.0 mmol/L (98-107); Creatinine Clr Calc Pharmacy 46.5 ml/min; Glucose 104.0 mg/dl (70-99(Fasting)); Potassium 4.3 mmol/L (3.5-5.1); Sodium 138.0 mmol/L (136-145)
--- NOTE | 2025-03-14 07:51 | Hospitalist Progress Note ---
Date of Service March 14, 2025 Assessment & Plan (1) Spinal stenosis of lumbar region with radiculopathy: (2) S/P lumbar spinal fusion: (3) Non Hodgkin's lymphoma: Plan This patient is an 84-year-old male who presented on 03/12 for an oblique lumbar interbody fusion L4-L5 with Dr. Berrios. Medical team is consulted for postoperative medical management #S/p lumbar spine surgery Perioperative antibiotics, pain control, fluids, and DVT PPx per the primary team Doing well postoperatively 03/13 XRL-spine: L4-5 fusion and unchanged compression fractures #Acute blood loss anemia Hgb 9.2 on POD #1 Expected drop in the setting of procedure Will hemoglobin stable, uptrending 03/14 #Leukocytosis Mild; WBC count elevated and downtrending. There is no left shift Afebrile, patient denies infectious symptoms No hypoxia, no evidence of aspiration Likely stress demargination - Trend CBC. - Continue IS #T2DM Last A1c at 6.6% on 01/26/2025 Hold metformin, Jardiance SSI; with target BSG range 110-140mg/dL T2DM diet BSG ACHS Pharmacy glycemic consult following #CAD s/p KRISS H/o NSTEMI 10/24/2020 with proximal posterior descending KRISS placed Continue aspirin - No chest pain on assessment #HTN Continue metoprolol OlmesartanHCTZ has been resumed, he is normotensive. Olmesartan was converted to formulary equivalent losartan #HLD Continue rosuvastatin #GERD Continue PPI # Renal mass secondary to non-Hodgkin's lymphoma - H/o bladder cancer; urothelial carcinoma s/p transurethral resection in 2022; follows with Dr. Jackson (Urology) - Recent diagnosis of non-Hodgkin's lymphoma on 02/16/2025 - Has upcoming appointment with oncology (Dr. Da Silva) on 03/23; has not yet started treatments #NICKOLAS - CPAP HS - May use own CPAP brought in from home DVT prophylaxis: Lovenox Disposition: Lives in a two-story house with his , son nearby. Does have about 13 steps in his home. 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 Pt hopeful for return home, not yet ready for this 03/14. PT/OT following. Admission and Anticipated Discharge Date Admission Date: March 12, 2025 Subjective Seen at bedside He feels more tired than yesterday. Had more trouble transferring from bed today. No numbness/tingling in his legs, just feels more tired. Does not feel ready to return home. Some pain in his back when moving, improves with rest. Pain has not worsened. No fevers/chills/sweats Physical Exam Physical Exam: General: A&Ox3. NAD. Cooperative. HEENT: Atraumatic, normocephalic. Vision/hearing grossly intact Pulm: CTAB A&P. -wheezes, -rales, -rhonchi. Symmetrical chest rise. No increased work of breathing. No respiratory distress. Cardiac: RRR, -mrg. Radial pulses intact and symmetrical. Ext: sensation intact to soft touch in upper and lower extremities b/l. 4-/5 L hip flexion, fagiues easily. Ankle dorsi/plantarflexion intact 5/5 b/l. Results & Data Results & Data Vital Signs (Past 12 Hours) Vital Signs Temp Pulse Resp BP BP Pulse Ox O2 Del Method 03/14/25 07:25 37.0 C 79 18 134/76 98 Room Air 03/13/25 23:52 36.7 C 88 16 115/68 94 Room Air PG Care Time/CCT Total # of Minutes Spent Total Time Spent with Patient: Total time spent is greater than 50% in coordination of care (as documented) at patient's floor/unit and/or counseling patient: Coding Level of Care Code 13696 SUB INP/OBS CARE 3/50MIN Diagnoses Spinal stenosis of lumbar region with radiculopathy M48.061; M54.16 S/P lumbar spinal fusion Z98.1 Non Hodgkin's lymphoma C85.90
--- NOTE | 2025-03-14 09:35 | Orthopedic Progress Note ---
Date of Service March 14, 2025 Assessment & Plan (1) Acute on chronic anemia: (2) S/P lumbar spinal fusion: Plan Mobilize with PT scd and lovenox pain control oxy/tylenol, muscle relaxer diet as tolerated bowel regimen likely home tomorrow, will stay today to work on PT and pain control H&H stable Subjective Status post OLIF, doing well. Back pain with mobilization as expected. No radicular symptoms. Tolerating diet and voiding. Review of Systems All systems reviewed & are unremarkable except as noted in HPI & below. Physical Exam Neurologic exam stable, no deficits Dressing clean dry and intact Results & Data Results & Data Laboratory Results . Diagnostic Findings . PG Care Time/CCT Total # of Minutes Spent Total Time Spent with Patient: Total time spent is greater than 50% in coordination of care (as documented) at patient's floor/unit and/or counseling patient: Coding Level of Care Code 54763 Post Operative Follow-Up Diagnoses Acute on chronic anemia D64.9 S/P lumbar spinal fusion Z98.1
[2025-03-15 04:29] LABS: Hematocrit (blood only) 29.1 % (42.0-52.0); Hemoglobin 9.1 g/dL (14.0-18.0); Immature Granulocytes # (auto) 0.05 K/uL (0.01-0.20); Immature Granulocytes % (auto) 0.4 %; Mean Corpuscular Hemoglobin 25.1 pg (25.0-34.0); Mean Corpuscular Volume 80.2 fL (80.0-100.0); Platelet Count 301 K/uL (130-400); RDW Standard Deviation 55.5 fL (36.4-46.3); Red Blood Count 3.63 M/uL (4.70-6.10); White Blood Count 11.17 K/ul (4.8-10.8)
[2025-03-15 04:47] LABS: Anion Gap 6.0 (3-11); Blood Urea Nitrogen 34.0 mg/dl (6-23); Calcium 9.5 mg/dl (8.6-10.3); Carbon Dioxide 26.0 mmol/L (21-32); Chloride 105.0 mmol/L (98-107); Creatinine Clr Calc Pharmacy 39.1 ml/min; Glucose 102.0 mg/dl (70-99(Fasting)); Potassium 3.6 mmol/L (3.5-5.1); Sodium 137.0 mmol/L (136-145)
[2025-03-15 08:40] VITALS: O2SAT 96
--- NOTE | 2025-03-15 10:00 | Orthopedic Progress Note ---
Date of Service March 15, 2025 Assessment & Plan (1) S/P lumbar spinal fusion: * Continue Current Treatment * Disposition: home * Daily treatment: Physical Therapy/ Occupational Therapy per protocol * Weight bearing status: activity as tolerated * Continue to monitor for ABLA * Pain control * DVT prophylaxis, stocking/SCDs * Office/hospital f/u 2 weeks for progress check and staple/suture removal * Plan for discharge today/tomorrow pending PT/OT clearance Subjective . Active Problems: S/p OLIF L4-5, posterior fusion POD 3 84 y/o male s/p L4-5 OLIF, posterior fusion. Doing well overall, pain managed and improved function. Denies fever/chills, chest pain/SOB, nausea/vomiting. Otherwise no complaints. Review of Systems All systems reviewed & are unremarkable except as noted in HPI & below. Physical Exam . * General: Alert and oriented, no acute distress * Constitutional: well-developed, well-nourished. * Respiratory: Normal respiratory effort, no distress * Gastrointestinal: No tenderness to palpation, no rigidity or guarding. * Skin: No rash or lesion. * Neurologic: Grossly normal * Musculoskeletal: Surgical dressing CDI. Lumbar spine region without obvious deformity or overlying skin changes. Minimal tenderness of surgical region, otherwise no tenderness b/l buttock or LE. Lumbar flexion/extension and rotation ROM with minimal pain. AROM b/l hip flexion, knee flexion/extension, ankle flexion/extension intact. Sensation intact plantar/dorsal foot. Brisk capillary refill. Results & Data Results & Data Laboratory Results . Diagnostic Findings . PG Care Time/CCT Total # of Minutes Spent Total Time Spent with Patient: Total time spent is greater than 50% in coordination of care (as documented) at patient's floor/unit and/or counseling patient: Coding Level of Care Code 65294 Post Operative Follow-Up Diagnoses S/P lumbar spinal fusion Z98.1
[2025-03-15 12:47] VITALS: BP 128/62; PULSE 100; RESP 20; TEMP 97.3
--- NOTE | 2025-03-15 14:51 | Pharmacy Report ---
Pharmacy Glycemic Sign Off Nt - Date of Service March 15, 2025 - Assessment & Plan ASSESSMENT: * Pharmacy was consulted by Dr Berrios on 03/12/25 for glycemic control and to write orders per [facility] inpatient glycemic control protocol. * Major changes made by pharmacy to antidiabetic regimen include: * conservative bolus insulin regimen started postop 03/12 * Patient has been receiving/requiring 0-2 units of insulin in for adequate glycemic control. * BSGs ranging 100-149 mg/dl * Insulin regimen d/c yesterday as patient was started on home metformin and is well controlled. BSGs have been in or below goal without any insulin coverage. * Do not anticipate further changes in patient status that would quickly deteriorate glycemic control (i.e. patient to be NPO for upcoming procedure, steroids tapering, starting tube feedings, etc). * Please see recommendations for outpatient antidiabetic regimen below. PLAN FOR INPATIENT GLYCEMIC CONTROL: No changes needed to current regimen. * NO insulin coverage needed. To continue metformin as ordered by the provider * Pharmacy is signing off of glycemic consult and will no longer be making adjustments to inpatient regimen. Please feel free to re-consult if needed. Thank you.
--- NOTE | 2025-03-15 16:13 | Discharge Summary ---
Date of Service March 15, 2025 Principal Diagnosis Same as "Discharge Diagnosis" noted below under Discharge Instructions. Discharge Exam . * General: Alert and oriented, no acute distress * Constitutional: well-developed, well-nourished. * Respiratory: Normal respiratory effort, no distress * Gastrointestinal: No tenderness to palpation, no rigidity or guarding. * Skin: No rash or lesion. * Neurologic: Grossly normal * Musculoskeletal: Surgical dressing CDI. Lumbar spine region without obvious deformity or overlying skin changes. Minimal tenderness of surgical region, otherwise no tenderness b/l buttock or LE. Lumbar flexion/extension and rotation ROM with minimal pain. AROM b/l hip flexion, knee flexion/extension, ankle flexion/extension intact. Sensation intact plantar/dorsal foot. Brisk capillary refill. Discharge Data Consultations 03/12/25 14:44 Consult Hospitalist Routine Procedures Performed Operation Date: 03/12/25 07:30 Actual Procedures p Oblique Lumbar Interbody Fusion L4-5, Posterior Fusion(Not Applicable) - Rodriguez Berrios MD Ordered Studies 03/12/25 07:30 CT lumbar spine wo con Routine [place] lumbar spine 2-3V Routine Hospital Course (1) Acute on chronic anemia: (2) S/P lumbar spinal fusion: (3) Spinal stenosis of lumbar region with radiculopathy: (4) Scoliosis of lumbar region due to degenerative disease of spine in adult: Plan Patient admitted after lumbar fusion for pain control and PT. His pain was controlled on PO meds, no need for transfusion and he felt comfortable going home with home health after working with PT in the hospital. Normal return of bowel and bladder function, tolerating PO diet. PG Care Time/CCT Total # of Minutes Spent Total Time Spent with Patient: Total time spent is greater than 50% in coordination of care (as documented) at patient's floor/unit and/or counseling patient: Discharge Plan Discharge Items Patient Disposition: Home - Self-Care Reason For Visit: Lumbosacral Spondylosis, Spinal Stenosis Lumbar Discharge Diagnosis: s/p L4-5 OLIF w/ CT cristo posterior instrumentation Condition on Discharge: Good Activity: As commented below Lifting: No more than 10 pounds Bathing Comment: follow instructions below Non-emergency contact: Surgeon Call non-emergency contact if: your pain is worsening, your temperature is above 101, your wound has increased redness and your wound has increased drainage Follow-up/Referrals: Rodriguez Berrios MD [Surgeon] - (03/24/2025 @ 10:00) Jaime Pak M.D. [Primary Care Provider] - Diet: Regular Addtl Attending Provider Instructions: Instructions for FUSION Spine Surgery DO NOT TAKE ANY ANTI-INFLAMMATORY MEDICATIONS (MOTRIN, ALEVE, MOBIC, ETC.) IF YOU HAVE UNDERGONE A LUMBAR, THORACIC, OR CERVICAL FUSION DO NOT TAKE ANY HERBAL SUPPLEMENTS MEDICATIONS: You will be given prescriptions for the following: Oxycodone, Percocet or Hydrocodone - For breakthrough pain. Cyclobenzaprine (Flexeril), Valium (Diazepam), Tizanidine (Zanaflex), or Methocarbamol (Robaxin) For muscle spasms and back pain. Take these medications as needed. They will help the most during your recovery time. Senna-s and Miralax Senna-S twice daily, 17g packet of Miralax with water once daily while taking narcotics. These medications prevent constipation caused by the pain medications. Ondansetron (Zofran) For nausea. Cephalexin (Keflex) or Sulfamethoxazole/trimethoprim (Bactrim). Antibiotic. You are given IV antibiotics while in the hospital; you may or may not be given a prescription for home; this will be decided after surgery. Your pre-surgery prescription medications With the exception of anti- inflammatory medications, blood thinners (Coumadin, Plavix, Eliquis, Pradaxa, etc.), or narcotic pain medications, you may resume your home medications. For the above medications, you will be given specific instructions; you may resume blood thinners 3-4 days after surgery. ACTIVITIES: Walking Walking is mandatory. You need to walk at least once every hour while awake. Walking will help prevent blood clots in your legs and help prevent spasms in your back. Bending/twisting Limit bending at the waist, limit twisting and turning. You will be taught to "log roll" to get out of bed. Avoid athletic activities until further notice. Lifting Do NOT lift more than 5 lbs until further notice. Driving You may drive when you are no longer taking narcotic pain medications, can safely operate the brake/gas/clutch pedals, and can move your head/neck for visibility. Tobacco All tobacco products are strictly prohibited after surgery. Any use will dramatically increase your risk of complications. This includes vapor cigarettes, marijuana, nicotine patches and gums. Bracing/Cervical Collar There is no brace required for thoracic or lumbar surgery. If you have had a single level cervical fusion, you will be given a soft collar for comfort. Multiple level cervical fusions will receive a hard collar to be worn at all times, except for showering and hygiene, until follow up in clinic. Surgical Dressing Initial operative dressing is to stay on for 2 days; you may change it if it becomes saturated. From then on, change the dressing daily with dry gauze and paper tape. Continue to change dressing until there is no discharge. Once there is no discharge on the dressing, you may leave the incision open to air but make sure to keep it out of the sun. For supplies, stop by any local pharmacy. Any type of gauze dressing is acceptable. Do not put any ointments on the wound. You may shower 48 hours after your surgery. Cover the incision with Saran Wrap and tape the edges to prevent water from contacting the incision. If water contacts the incision, pat dry. No baths or submerging the incision until seen in the clinic at follow up appointment. Next Appointment: If you do not already have one made, you will need to schedule an appointment to see Dr. Berrios about 2 weeks after surgery. To schedule, please call [phone]. QUESTIONS Please contact the office with questions or concerns: [phone] If outside normal business hours, you will be connected with the on-call physician. Pending Studies at Discharge: No Stand-Alone Forms: My [facility] Like[employer]fm, Smoking Cessation Medications and DC Order Prescriptions: New tizanidine 4 mg Tablet 4 mg PO Q8H PRN (Reason: muscle spasticity) 30 Days Qty: 90 1RF oxycodone 5 mg Tablet 5 mg PO Q4H PRN (Reason: post op pain) 14 Days Qty: 60 0RF Continued gabapentin 300 mg capsule 300 mg PO TID Qty: 90 2RF lidocaine 5 % ointment 1 applic topical QID PRN (Reason: pain) Qty: 50 2RF Jardiance 25 mg tablet 25 mg PO QAM metformin 500 mg Tablet 500 mg PO BID tamsulosin 0.4 mg Capsule 0.4 mg PO QAM esomeprazole magnesium [Nexium] 40 mg Capsule,Delayed Release(Dr/Ec) 40 mg PO QAM metoprolol succinate [Toprol XL] 25 mg Tablet Extended Release 24 Hr 12.5 mg PO QAM cholecalciferol (vitamin D3) [Vitamin D3] 25 mcg (1,000 unit) Capsule 25 mcg PO QAM dutasteride [Avodart] 0.5 mg Capsule 0.5 mg PO QAM rosuvastatin [Crestor] 20 mg Tablet 20 mg PO QAM Centrum Silver Men [id number] mcg Tablet 1 tab PO QAM mirabegron [Myrbetriq] 50 mg Tablet Extended Release 24 Hr 50 mg PO QAM olmesartan-hydrochlorothiazide [Benicar HCT] 20-12.5 mg Tablet 1 tab PO DAILY aspirin 81 mg Capsule 81 mg PO QAM cetirizine 10 mg Tablet 10 mg PO QAM acetaminophen [Tylenol 8 Hour] 650 mg Tablet Extended Release 650 mg PO BID PRN (Reason: Pain) PreserVision AREDS-2 250-90-40-1 mg Capsule 1 tab PO BID Discontinued celecoxib 200 mg capsule 200 mg PO BID Discharge Orders: Discharge Order (Routine); Ordered 03/15/25 Ordered By: Tyrone Ace Admission Data Admit Date/Time: 03/12/25 07:23 Attending Provider: Rodriguez Berrios Admit Provider: Rodriguez Berrios Primary Care Provider: Jaime Pak Other Providers: Spencer Lau Other Interventions: Discharge Summary Assessment (RN) Last Done: 03/15/25 15:13
== END 2025-03-15 16:26 | disposition home or self-care (01) | DRG 457 ==
LOC: ASU 06:07 → 3E 07:23